=== PATIENT | female | born 1960 | race Caucasian/White ===

== ENCOUNTER → 2017-06-10 | Outpatient (CLI) | payer BC, OTHER | LOC: MC.RAD 13:33 | DX: Z12.31 Encounter for screening mammogram for malignant neoplasm of breast (principal) ==

== ENCOUNTER → 2018-07-27 | Outpatient (CLI) | payer BC, OTHER | LOC: MC.RAD 12:54 | DX: Z12.31 Encounter for screening mammogram for malignant neoplasm of breast (principal); N64.89 Other specified disorders of breast; Z98.82 Breast implant status ==

== ENCOUNTER → 2018-08-04 | Outpatient (CLI) | payer BC, OTHER | LOC: MC.RAD 12:59 | DX: N63.10 Unspecified lump in the right breast, unspecified quadrant (principal); R92.8 Other abnormal and inconclusive findings on diagnostic imaging of breast ==

== ENCOUNTER → 2018-08-17 | Outpatient (CLI) | payer BC, OTHER | LOC: MC.RAD 08:00 | DX: N63.11 Unspecified lump in the right breast, upper outer quadrant (principal); Z98.82 Breast implant status ==

== ENCOUNTER 2021-04-14 16:10 | Emergency (ER) | payer BC ==
[~2021-04-14] VITALS: Ht 165.1 cm; Wt 84.5 kg
[2021-04-14 16:10] VITALS: TEMP 98.3
[2021-04-14] MEDS ORDERED: NORCO 325 MG-51 TAB PO (17:06)
[2021-04-14] MEDS ORDERED: CRUTCHES MC (17:06)
[2021-04-14 21:25] VITALS: BP 150/83; PULSE 77
== END 2021-04-14 21:30 | disposition home or self-care (01) ==
LOC: COL.ER 16:10
DX: S82.52XA Displaced fracture of medial malleolus of left tibia, initial encounter for closed fracture (principal); S82.832A Other fracture of upper and lower end of left fibula, initial encounter for closed fracture; W10.9XXA Fall (on) (from) unspecified stairs and steps, initial encounter
CPT/HCPCS: J2250; J2704; J3010; J7030